=== PATIENT | male | born 1950 | race Caucasian/White ===

== ENCOUNTER → 2016-12-08 | Outpatient (CLI) | payer MEDICARE, BC ==
[2016-12-08 09:16] LABS: Blood Urea Nitrogen 22 mg/dL (9-20); Non-African American GFR(MDRD) >60 (>60 ml/min/1.73 sqM)
--- NOTE | 2016-12-08 10:39 | CT ---
EXAMINATION TYPE: CT chest w con DATE OF EXAM: 12/08/2016 9:53 AM COMPARISON: 11/26/2015 HISTORY: Solitary Lung Nodules CT DLP: 629.00 mGycm, Automated exposure control for dose reduction was used. CONTRAST: Performed injected with 100 ml mL of Omnipaque 300. TECHNIQUE: Axial images were obtained at 5 mm thick sections. Reconstructed images are reviewed on [employer] computer in the coronal plane. FINDINGS: Portion of the thyroid visualized is normal. There may be some mild thickening along the pleural margin of the right superior lateral lung apex pr esent previously. There is a 0.5 cm nodule in the periphery of the right middle lobe. Series 4 image 26. There is a 0.7 cm nodule posterior lateral superior segment right lower lobe. Series 4 image 30 0 .6 cm nodules in the right lower lobe. Series 4 image 33 calcification may be in the anterior right d iaphragm. There is a 0.6 cm nodule in the periphery of lower lateral left lower lobe. These are stabl e from 2014 and 2015. No enlarged mediastinal or hilar adenopathy is evident. Scattered small lymph nodes are pretracheal space The ascending aorta diameter at the level of the main pulmonary artery is 4.2 cm. The main pu lmonary artery diameter at the bifurcation is 2.6 cm. Coronary artery calcification is noted. Limited CT sections are obtained through the upper abdomen. Abdomen is essentially unremarkable. IMPRESSIONS: 1. Scattered small bilateral lung nodules. These are stable from 2015 and 2014 comparison. Findings a re likely benign.
== END | disposition home or self-care (01) ==
LOC: RADCTMAIN 08:22
PROVIDERS: ATTEND Internal Medicine
DX: R91.8 Other nonspecific abnormal finding of lung field (principal)
CPT/HCPCS: 82565; 84520; 71260; 36415; Q9967

== ENCOUNTER → 2018-07-01 | Outpatient (CLI) | payer MEDICARE, BC ==
--- NOTE | 2018-07-01 15:48 | PN ---
PROGRESS NOTE DATE OF SERVICE: 07/01/2018 This patient is a 67-year-old gentleman who has been followed in the sleep center for treatment of obstructive sleep apnea-hypopnea syndrome. The last time I saw the patient was 2 years ago. He continues to use his CPAP equipment every night for the whole night without problems related to the machine, mask fitting or humidification. I checked his CPAP unit. Usage is 100% of the time, 30/30 nights for more than 4 hours. Average usage is 8 hours per night. No leak from the mask at all. Apnea-hypopnea index is only 0.4, which is absolutely perfect. [place] Sleepiness Scale today is 4. MEDICATIONS: 1. Benicar. 2. Glyburide. 3. Vytorin. 4. Tamsulosin. 5. Aspirin. 6. Centrum Silver. PHYSICAL EXAMINATION: GENERAL: A pleasant patient in no distress. VITAL SIGNS: BP 116/62, HR 80, RR 16, height 6 feet 1-1/2 inches, weight 309.8 pounds, which is 4 pounds more than during previous visit. Body mass index 40.2, temperature 97.8, oxygen saturation at room air 93%. HEENT: PERRLA, EOMI. Evaluation of oropharynx showed tongue protrudes midline. Extremely low position of soft palate. NECK: Supple. No JVD. Thyroid is not palpable. LUNGS: Clear to percussion and to auscultation. Good air exchange. No wheezing or rhonchi. HEART: S1, S2 regular. No murmurs, gallops or rubs. ABDOMEN: Obese. EXTREMITIES: No clubbing or cyanosis. DOUGH MIXER: Awake, alert, and oriented X3. Cranial nerves 2 to 7 intact. There is no fasciculation or atrophy. noted. No focal deficits observed. IMPRESSION: 1. Obstructive sleep apnea-hypopnea syndrome. Patient demonstrated 100% compliance with treatment, benefitting from treatment. Normal respiration on CPAP. 2. Obesity. 3. Hypertension. 4. Diabetes mellitus. 5. Hyperlipidemia. 6. Status post tonsillectomy. 7. Status post hernia repair. PLAN: 1. Patient will continue to use CPAP equipment every night for the whole night. 2. Prescription for all necessary CPAP supplies, including nasal mask, tube, filters. 3. Losing weight. 4. Sleep hygiene with regular time in bed for at least 8 hours. 5. No driving if feeling any sleepiness. 6. We will consider replacing CPAP unit if necessary; possibly CPAP unit is more than 5 years old. Thank you very much for allowing me to participate in the management of your patient. Sincerely, Ryan Rader MD, PhD, FAASM Diplomat of [place] [employer] [place] [employer] Air Pollution Compliance Inspector of [facility] [place] MMODL / IJN: [id number] /
== END | disposition home or self-care (01) ==
LOC: SLEEP 13:07
PROVIDERS: ATTEND Internal Medicine
DX: G47.33 Obstructive sleep apnea (adult) (pediatric) (principal); E66.9 Obesity, unspecified; E11.9 Type 2 diabetes mellitus without complications; I10 Essential (primary) hypertension; E78.5 Hyperlipidemia, unspecified; Z90.89 Acquired absence of other organs; Z79.899 Other long term (current) drug therapy; Z98.890 Other specified postprocedural states; Z79.82 Long term (current) use of aspirin; Z99.89 Dependence on other enabling machines and devices; Z79.84 Long term (current) use of oral hypoglycemic drugs; Z68.41 Body mass index [BMI] 40.0-44.9, adult

== ENCOUNTER 2021-01-02 08:07 | Day surgery (SDC) | payer MEDICARE, BC ==
[2021-01-01 08:35] VITALS: BMI 35.3
[~2021-01-02 08:07] MED LIST: LACTATED RINGERS 1,000 ML IV SCH
--- NOTE | 2021-01-02 08:36 | P.GSHP ---
History of Present Illness H&P Date: 01/02/21 CHIEF COMPLAINT: GERD and colon screen HISTORY OF PRESENT ILLNESS: The patient is a 70-year-old male who presents with gastroesophageal reflux disease and need for colon screen. Upper and lower endoscopy were offered for further evaluation and management. PAST MEDICAL HISTORY: Please see list. PAST SURGICAL HISTORY: Please see list. MEDICATIONS: Please see list. ALLERGIES: Please see list. SOCIAL HISTORY: No illicit drug use FAMILY HISTORY: No reports of Crohn disease or ulcerative colitis. REVIEW OF ORGAN SYSTEMS: CONSTITUTIONAL: No reports of fevers or chills. GI: Denies any blood in stools or constipation. PHYSICAL EXAM: VITAL SIGNS: Stable GENERAL: Well-developed pleasant in no acute distress. HEENT: No scleral icterus. Extraocular movements grossly intact. Moist buccal mucosa. NECK: Supple without lymphadenopathy. CHEST: Unlabored respirations. Equal bilateral excursions. CARDIOVASCULAR: Regular rate and rhythm. Distal 2+ pulses. ABDOMEN: Soft, nondistended. MUSCULOSKELETAL: No clubbing, cyanosis, or edema. ASSESSMENT: 1. Gastroesophageal reflux disease 2. Colon screen. PLAN: 1. Recommend proceeding with an upper and lower endoscopy Past Medical History Past Medical History: Cancer, Diabetes Mellitus, Hyperlipidemia, Hypertension, Prostate Disorder, Skin Disorder, Sleep Apnea/CPAP/BIPAP Additional Past Medical History / Comment(s): melanoma, diverticulitis, stasis dermatitis History of Any Multi-Drug Resistant Organisms: None Reported Past Surgical History: Cholecystectomy, Hernia Repair, Orthopedic Surgery, Tonsillectomy Additional Past Surgical History / Comment(s): rt shoulder rotator cuff repair, melonoma removal right shoulder, rt inguinal hernia Past Anesthesia/Blood Transfusion Reactions: Previous Problems w/ Anesthesia Additional Past Anesthesia/Blood Transfusion Reaction / Comment(s): bp dropped during shoulder rotator cuff sx, "small veins" diff IV starts Smoking Status: Former smoker - Past Family History Sister(s) Family Medical History: Cancer Father Family Medical History: Hypertension Additional Family Medical History / Comment(s): gallbladder disease Mother Family Medical History: Hypertension Additional Family Medical History / Comment(s): gallbladder disease Medications and Allergies Home Medications Medication Instructions Recorded Confirmed Type Ezetimibe/Simvastatin [Vytorin 1 each PO HS 11/10/14 01/01/21 History 10-20 mg Tablet] Multivit-Min/FA/Lycopene/Lut 1 each PO DAILY 11/10/14 01/01/21 History [Centrum Silver Tablet] glyBURIDE/METFORMIN HCL 1 each PO BID 11/10/14 01/01/21 History [Glucovance 5-500 mg Tablet] Multivitamins, Thera [Multivitamin] 1 tab PO DAILY 03/29/15 01/01/21 History Aspirin [Adult Low Dose Aspirin EC] 81 mg PO DAILY 01/01/21 01/01/21 History Enalapril [Vasotec] 10 mg PO DAILY 01/01/21 01/01/21 History Furosemide [Lasix] 20 mg PO QAM 01/01/21 01/01/21 History Tamsulosin [Flomax] 0.4 mg PO 1600 01/01/21 01/01/21 History Triamcinolone 0.1% Cream [Kenalog 1 applicatio TOPICAL DAILY PRN 01/01/21 0 01/01/21 History 0.1% Cream] Allergies Allergy/AdvReac Type Severity Reaction Status Date / Time phentermine [From Adipex-P] Allergy Rash/Hives Verified 01/02/21 08:36
[2021-01-02 08:40] VITALS: RESP 16; TEMP 97.2
[2021-01-02] MEDS ORDERED: LIDOCAINE 1% (10MG/ML) FOR IV START INTRADERMA ONE (08:47)
[2021-01-02 08:54] LABS: Glucose,Whole Blood 114 mg/dL (75-99)
[2021-01-02] MEDS ORDERED: PROPOFOL 10 MG/ML 20 ML VIAL IV ONE (09:06)
[2021-01-02] MEDS ORDERED: KETAMINE 10 MG/ML 20 ML VIAL ONE (09:06)
[2021-01-02] MEDS ORDERED: MIDAZOLAM 2 MG/2 ML VIAL ONE (09:06)
[2021-01-02] MEDS ORDERED: LIDOCAINE 1% INJ 10MG/ML (20 ML MDV) ONE (09:06)
--- NOTE | 2021-01-02 09:21 | P.PCN ---
Date of Procedure: 01/02/21 Description of Procedure: PREOPERATIVE DIAGNOSIS: Gastroesophageal reflux disease. Morbid obesity. POSTOPERATIVE DIAGNOSIS: Morbid obesity. Gastritis. Gastroesophageal reflux disease. Diaphragmatic hiatal hernia OPERATION: Esophagogastroduodenoscopy with biopsies along antrum. SURGEON: Ami Cuadra MD ANESTHESIA: MAC. INDICATIONS: The patient is a 70-year-old male who presents with a history of reflux disease. Benefits and risks of the procedure were described. Informed consent was obtained. DESCRIPTION: The patient was brought into the endoscopy suite and laid in the left lateral decubitus position. An Olympus gastroscope was passed along the posterior oropharynx down to the distal esophagus where the squamocolumnar junction was encountered at 40 cm from the incisors. The stomach was entered and no bile reflux was found. Additional findings are listed below. Biopsies with cold for ceps were obtained of the antrum. The first through third portion of the duodenum was examined and unremarkable. Retroflexion of the scope confirmed Hill grade 4 lower esophageal valve. The squamocolumnar junction demonstrated LA grade B erosive esophagitis. The stomach was desufflated. The patient tolerated the procedure well. FINDINGS: Squamocolumnar junction 40 cm from the incisors. Diaphragmatic hiatus at 43 cm. Hiatal hernia, 3 cm Hill grade 4 lower esophageal valve. LA grade B erosive esophagitis. No active duodenitis. Chronic gastritis with recent bleed RECOMMENDATIONS: Upper endoscopy as needed.
--- NOTE | 2021-01-02 09:48 | P.PCN ---
Date of Procedure: 01/02/21 Description of Procedure: PREOPERATIVE DIAGNOSIS: Colonoscopy screening. Personal history colon polyps POSTOPERATIVE DIAGNOSIS: Colonoscopy screening. Diverticulosis, scattered. OPERATION: Colonoscopy to the cecum, ileocecal valve and appendiceal orifice. SURGEON: Ami Cuadra MD. ANESTHESIA: MAC. INDICATIONS: The patient is a 70-year-old male who presents for colonoscopy screening. Last colonoscopy over 5 years ago. Benefits and risks were described and informed consent was obtained. DESCRIPTION OF PROCEDURE: The patient had undergone Sutab prep. The patient had been brought into the operating room and laid in the left lateral decubitus position. After adequate intravenous sedation, the rectum was examined with 2% lidocaine jelly. External hemorrhoids were encountered. The rectal tone was within normal limits. No lesions were palpated in the rectal vault. An Olympus colonoscope was advanced until the cecum, ileocecal valve and appendiceal orifice were clearly viewed. The prep was excellent. Scattered diverticulosis was encountered. No large colonic polyps were found. No evidence of focal colitis was found. Retroflexion of the scope demonstrated grade 4 internal hemorrhoids without active bleeding or inflammation. The colon was desufflated. The patient had tolerated the procedure well. Withdrawal time was over 6 minutes. FINDINGS: Aronchick preparation quality scale 1 (1-5) Internal hemorrhoids, grade 3 External prolapsed hemorrhoids, grade 3 No arteriovenous malformations. No adenomatous polyps. No focal colitis. RECOMMENDATIONS: Repeat colonoscopy 5 years, 2025 Plan - Discharge Summary New Discharge Prescriptions: Continue glyBURIDE/METFORMIN HCL [Glucovance 5-500 mg Tablet] 1 each PO BID Ezetimibe/Simvastatin [Vytorin 10-20 mg Tablet] 1 each PO HS Multivit-Min/FA/Lycopene/Lut [Centrum Silver Tablet] 1 each PO DAILY Multivitamins, Thera [Multivitamin (formulary)] 1 tab PO DAILY Triamcinolone 0.1% Cream [Kenalog 0.1% Cream] 1 applicatio TOPICAL DAILY PRN PRN Reason: Rash Furosemide [Lasix] 20 mg PO QAM Enalapril [Vasotec] 10 mg PO DAILY Tamsulosin [Flomax] 0.4 mg PO 1600 Aspirin [Adult Low Dose Aspirin EC] 81 mg PO DAILY Discharge Medication List Ezetimibe/Simvastatin [Vytorin 10-20 mg Tablet] 1 each PO HS 11/10/14 [History] Multivit-Min/FA/Lycopene/Lut [Centrum Silver Tablet] 1 each PO DAILY 11/10/14 [History] glyBURIDE/METFORMIN HCL [Glucovance 5-500 mg Tablet] 1 each PO BID 11/10/14 [History] Multivitamins, Thera [Multivitamin (formulary)] 1 tab PO DAILY 03/29/15 [History] Aspirin [Adult Low Dose Aspirin EC] 81 mg PO DAILY 01/01/21 [History] Enalapril [Vasotec] 10 mg PO DAILY 01/01/21 [History] Furosemide [Lasix] 20 mg PO QAM 01/01/21 [History] Tamsulosin [Flomax] 0.4 mg PO 1600 01/01/21 [History] Triamcinolone 0.1% Cream [Kenalog 0.1% Cream] 1 applicatio TOPICAL DAILY PRN 01/01/21 [History] Follow up Appointment(s)/Referral(s): Ami Cuadra MD [STAFF PHYSICIAN] - 01/15/21 3:15 pm Patient Instructions/Handouts: *Surgery [facility] - (Anesthesia) Endoscopy Discharge Instructions, Hiatal Hernia (ED), Diverticulosis (ED), Diet for Stomach Ulcers and Gastritis (GEN), Diverticulosis Diet (GEN) Activity/Diet/Wound Care/Special Instructions: Repeat colonoscopy 5 years, 2025 Discharge Disposition: HOME SELF-CARE
[2021-01-02 09:56] VITALS: BP 107/70; PULSE 58
== END 2021-01-02 10:11 | disposition home or self-care (01) ==
LOC: ORWHC2ENDO 08:07
PROVIDERS: ATTEND Surgery Plastic and Reconstructive Surgery
DX: Z12.11 Encounter for screening for malignant neoplasm of colon (principal); K29.50 Unspecified chronic gastritis without bleeding; K22.10 Ulcer of esophagus without bleeding; K44.9 Diaphragmatic hernia without obstruction or gangrene; K57.90 Diverticulosis of intestine, part unspecified, without perforation or abscess without bleeding; K64.2 Third degree hemorrhoids; Z86.010 Personal history of colon polyps; E66.01 Morbid (severe) obesity due to excess calories; Z68.35 Body mass index [BMI] 35.0-35.9, adult; E11.9 Type 2 diabetes mellitus without complications; E78.5 Hyperlipidemia, unspecified; I10 Essential (primary) hypertension; N42.9 Disorder of prostate, unspecified; G47.30 Sleep apnea, unspecified; M19.90 Unspecified osteoarthritis, unspecified site; Z85.820 Personal history of malignant melanoma of skin; Z87.19 Personal history of other diseases of the digestive system; Z90.49 Acquired absence of other specified parts of digestive tract; Z90.89 Acquired absence of other organs; Z98.890 Other specified postprocedural states; Z87.891 Personal history of nicotine dependence; Z80.9 Family history of malignant neoplasm, unspecified; Z82.49 Family history of ischemic heart disease and other diseases of the circulatory system; Z83.79 Family history of other diseases of the digestive system; Z79.84 Long term (current) use of oral hypoglycemic drugs; Z79.82 Long term (current) use of aspirin; Z79.899 Other long term (current) drug therapy; Z88.8 Allergy status to other drugs, medicaments and biological substances
CPT/HCPCS: 88305; 43239; J2250; J2001; J2704; G0105

== ENCOUNTER → 2021-05-09 | Outpatient (CLI) | payer MEDICARE, BC ==
--- NOTE | 2021-05-10 10:30 | SFUN ---
SLEEP CENTER FOLLOW UP NOTE DATE OF SERVICE: 05/09/2021 This 70-year-old gentleman has been followed in Sleep Center for treatment of obstructive sleep apnea-hypopnea syndrome. I did not see the patient since June 2018. The patient continues to use his CPAP equipment, but CPAP equipment is old, and patient was told by [employer] [facility] that they do not have any supplies available for his machine. [place] Sleepiness Scale today is 1. I checked his CPAP unit. Usage is 30/30 nights for more than 4 hours, average 8 hours 18 minutes. Leak is 1%, which is normal. Apnea-hypopnea index is only , which is perfect. CPAP pressure is 13 cm of water. MEDICATIONS: 1. Enalapril 20 mg once a day. 2. Furosemide 20 mg once a day. 3. Glyburide-metformin 5/500 mg twice a day. 4. Aspirin 81 mg once a day. 5. Flomax 0.4 mg once a day. PHYSICAL EXAMINATION: GENERAL: Pleasant patient in no distress. VITAL SIGNS: BP 118/74, HR 63, RR 15, height 6 feet 1-1/2 inches, weight 294 pounds, body mass index , temperature 97.3, oxygen saturation at room air 93%. HEENT: PERRLA, EOMI, evaluation of oropharynx showed tongue protrudes midline. Extremely low position of soft palate. NECK: Supple, no JVD. Thyroid is not palpable. LUNGS: Clear to percussion and to auscultation. Good air exchange. No wheezing or rhonchi. HEART: S1, S2 regular. No murmurs, gallops, or rubs. ABDOMEN: Soft and nontender. Bowel sounds are present. No organomegaly appreciated. EXTREMITIES: No clubbing or cyanosis. CLINICAL RN LIAISON: Awake, alert, and oriented X3. Cranial nerves 2 to 7 intact. There is no fasciculation or atrophy. noted. No focal deficits observed. IMPRESSION: 1. Obstructive sleep apnea-hypopnea syndrome. Patient demonstrated 100% compliance with treatment, benefitting from treatment. CPAP unit is old; no supplies available for his CPAP unit, according to [employer] [facility]. 2. Obesity. 3. Hypertension. 4. Diabetes mellitus. 5. Hyperlipidemia. 6. Status post tonsillectomy. 7. Status post hernia repair. PLAN: 1. Prescription for new CPAP unit, automatic regimen with maximal pressure of 15. 2. Patient will continue to use PAP equipment every night for the whole night. 3. Sleep hygiene with regular time in bed for at least 7-1/2 to 8 hours. 4. Precautions related to driving. No driving if feeling sleepiness. 5. I will maintain all necessary prescription for PAP supplies including mask, tube, filters. 6. Watching weight. 7. Follow-up visit in 30 to 90 days after patient gets his new CPAP unit. Thank you very much for allowing me to participate in the management of your patient. Sincerely, Ryan Rader MD, PhD, FAASM Diplomat of [place] [employer] Sleep Medicine Board of [place] [employer] Glass Carrier of [facility] [place] MMCOLINL / PATYN: [id number] /
== END | disposition home or self-care (01) ==
LOC: SLEEP 16:00
PROVIDERS: ATTEND Internal Medicine
DX: G47.33 Obstructive sleep apnea (adult) (pediatric) (principal); E66.9 Obesity, unspecified; I10 Essential (primary) hypertension; E11.9 Type 2 diabetes mellitus without complications; E78.5 Hyperlipidemia, unspecified; Z90.89 Acquired absence of other organs; Z48.815 Encounter for surgical aftercare following surgery on the digestive system

== ENCOUNTER → 2021-08-01 | Outpatient (CLI) | payer MEDICARE, BC ==
--- NOTE | 2021-08-01 22:13 | SFUN ---
SLEEP CENTER FOLLOW UP NOTE DATE OF SERVICE: 08/01/2021 70-year-old gentleman has been followed in Sleep Center for treatment of obstructive sleep apnea-hypopnea syndrome. Recently patient's CPAP unit has been replaced and today is his first visit with a new CPAP machine. He likes his CPAP unit, using it every night. It works for him better than the previous CPAP unit. He did not receive his nasal mask which he did receive before. [place] Sleepiness Scale is 3, which is normal. I checked CPAP unit. Range of the pressure 10-15. Patient using it 30/30 nights. Average usage 7.9 hours per night which is great compliance. Leak is 25 L/minutes which is borderline. Apnea-hypopnea index only 0.8 which is perfect. MEDICATIONS: Enalapril 20 mg once a day, furosemide 20 mg once a day, aspirin 81 mg once a day. Glyberide metformin 5/500 mg twice a day. Flomax 0.4 mg once a day. PHYSICAL EXAMINATION: GENERAL: Patient in no distress. BP 131/68, HR 70, RR 18, weight 299.6, temperature 97.3, oxygen saturation at room air 92%. [place] Sleepiness Scale is 3. Oropharynx: Extremely low position of soft palate, Mallampati 4. NECK: Supple, no JVD. Thyroid is not palpable. LUNGS: Clear to percussion and to auscultation. Good air exchange. No wheezing or rhonchi. HEART: S1, S2 regular. No murmurs, gallops, or rubs. ABDOMEN: Slightly obese. Soft and nontender. Bowel sounds are present. No organomegaly appreciated. EXTREMITIES: No clubbing or cyanosis. PLUMBING MANAGER: Awake, alert, and oriented X3. Cranial nerves 2 to 7 intact. There is no fasciculation or atrophy. noted. No focal deficits observed. IMPRESSION: 1. Obstructive sleep apnea-hypopnea syndrome. Patient demonstrated 100% compliance with treatment. Normal respiration on new CPAP unit. 2. Patient does not like the nasal mask which he received. 3. Obesity. 4. Hypertension. 5. Diabetes mellitus. 6. Hyperlipidemia. 7. Status post tonsillectomy. 8. Status post hernia repair. PLAN: 1. Prescription to replace nasal mask to the style which patient used before. 2. Patient will continue to use PAP equipment every night for the whole night. 3. Sleep hygiene with regular time in bed for at least 7-1/2 to 8 hours. 4. Precautions related to driving. No driving if feeling sleepiness. 5. I will maintain all necessary prescription for PAP supplies including mask, tube, filters. 6. Watching weight. 7. Follow-up visit in 6 months or earlier if patient has any problems. Thank you very much for allowing me to participate in the management of your patient. Sincerely, Ryan Rader MD, PhD, FAASM Diplomat of [place] [employer] Sleep Medicine Board of [place] [employer] Crate Maker of [facility] [place] MMODL / IJN: [id number] /
== END | disposition home or self-care (01) ==
LOC: SLEEP 11:08
PROVIDERS: ATTEND Internal Medicine
DX: G47.33 Obstructive sleep apnea (adult) (pediatric) (principal); E66.9 Obesity, unspecified; I10 Essential (primary) hypertension; E78.5 Hyperlipidemia, unspecified; E11.9 Type 2 diabetes mellitus without complications; Z90.49 Acquired absence of other specified parts of digestive tract; Z98.890 Other specified postprocedural states

== ENCOUNTER → 2022-01-30 | Outpatient (CLI) | payer MEDICARE, BC ==
--- NOTE | 2022-01-30 11:56 | P.PN ---
Subjective DATE: 01/30/2022 FOLLOW UP VISIT. Patient with obstructive sleep apnea hypopnea syndrome return to sleep center for follow-up visit. Information from previous visit have been reviewed. Patient is using PAP equipment every night for the whole night, getting PAP supplies in time. The patient does not have significant problems with the mask, PAP unit and humidification. [place] sleepiness scale is 2. I checked PAP unit. PAP unit pressure 1015, average 14.6 cm H2O. Usage is 100 % for more then 4 hours, average 7.9 hours per night. Leak is 5 l/m, which is in acceptable range. Apnea Hypopnea Index is 0.6, which is normal. MEDICATIONS:1. enalapril 20 mg once a day 2. Glyburidemetformin 5 mg500 mg twice a day 3. Lasix 20 mg once a day 4. Flomax 0.4 mg once a day 5. Vytorin once a day 6. Fluticasone 7. Aspirin 81 mg once a day During physical exam: GENERAL: A pleasant patient without any distress. VITAL SIGNS: BP 119/74, HR 62, RR 16, weight 290, temperature 97.3, oxygen saturation at room air 95 % . HEENT: PERRLA, EOMI.low position of soft palate, Mallapati for. NECK: Supple. No JVD. LUNGS: Clear to percussion and to auscultation. Good air exchange. No wheezing or rhonchi. HEART: S1, S2 regular. ABDOMEN: Soft and nontender. Obese EXTREMITIES: No clubbing or cyanosis. LITHOGRAPHIC PROOFER APPRENTICE: Awake, alert, and oriented x3. No focal deficit. Impressions: 1. Obstructive sleep apnea-hypopnea syndrome. Patient demonstrated great compliance with treatment, benefiting from treatment. 2. Obesity. 3. Hypertension. 4. Diabetes mellitus. 5. Hyperlipidemia. 6. Status post tonsillectomy. 7. Status post hernia repair. Plan: 1. Continue using PAP equipment every night for the whole night. 2. To change air filter at least 1-2 times per month. 3. PAP unit should stay lower then position of the head. 4. Advised patient to remove all remaining water from humidifier canister daily and make it dry after each usage. Refill canister with fresh distilled water before each usage. 5. Sleep hygiene with regular time in bed for at least 8 hours. 6. Precautions related to driving. No driving if feel any sleepiness. 7. I will maintain prescription for PAP supplies including mask, tube, filters. 8. Follow up visit in 6 months or earlier if patient has any problems. 9. Watching weight. Thank you very much for allowing me to participate in the management of your patient. Ryan Rader MD, PhD, FAASM. Diplomat of [place] [employer], Sleep Medicine Board by [place] [employer] Tariff Expert of [facility] [place]
== END ==
LOC: SLEEP 10:49
PROVIDERS: ATTEND Internal Medicine
DX: G47.33 Obstructive sleep apnea (adult) (pediatric) (principal); E66.9 Obesity, unspecified; I10 Essential (primary) hypertension; E11.9 Type 2 diabetes mellitus without complications; E78.5 Hyperlipidemia, unspecified; Z90.09 Acquired absence of other part of head and neck; Z98.890 Other specified postprocedural states; Z99.89 Dependence on other enabling machines and devices; Z88.8 Allergy status to other drugs, medicaments and biological substances

== ENCOUNTER → 2022-07-31 | Outpatient (CLI) | payer MEDICARE, BC ==
--- NOTE | 2022-07-31 12:41 | P.PN ---
Subjective DATE: [] FOLLOW UP VISIT. Patient with obstructive sleep apnea hypopnea syndrome return to sleep center for follow-up visit. Information from previous visit have been reviewed. This is first visit after patient received new CPAP unit. Patient is using PAP equipment every night for the whole night, getting PAP supplies in time. The patient does not have significant problems with the mask, PAP unit and humidification. [place] sleepiness scale is 2, which is perfect. I checked information from PAP unit. PAP unit pressure 10-15, average 14.9 cm H2O. Usage is 98 % for more then 4 hours, average 7.5 hours per night. Leak is perfect 0 l/m. Apnea Hypopnea Index is 1.0, which is normal. MEDICATIONS:1. Enalapril 20 mg once a day 2. Flomax 0.4 mg once a day 3. Glyburide/metformin 5/500 mg twice a day 4. Vytorin 5. Simvastatin 6. Lasix 20 mg once a day During physical exam: GENERAL: A pleasant patient without any distress. VITAL SIGNS: BP 131/83, HR 65, RR 16 , weight 295.4, temperature 97.2, oxygen saturation at room air 96 % . HEENT: PERRLA, EOMI.low position of soft palate, Mallapati 4 . NECK: Supple. No JVD. LUNGS: Clear to percussion and to auscultation. Good air exchange. No wheezing or rhonchi. HEART: S1, S2 regular. ABDOMEN: Soft and nontender. Obese EXTREMITIES: No clubbing or cyanosis. SHEET METAL ROOFER: Awake, alert, and oriented x3. No focal deficit. Impressions: 1. Obstructive sleep apnea-hypopnea syndrome. Patient demonstrated great compliance with treatment, benefiting from treatment. 2. Hypertension. 3. Diabetes mellitus. 4. Obesity. 5. Hyperlipidemia. 6. Status post tonsillectomy. 7. Status post hernia repair. 8. []. 9. []. 10. []. 11.[]. 12.[]. Plan: 1. Continue using PAP equipment every night for the whole night. 2. To change air filter at least 1-2 times per month. 3. PAP unit should stay lower then position of the head. 4. Advised patient to remove all remaining water from humidifier canister daily and make it dry after each usage. Refill canister with fresh distilled water before each usage. 5. Sleep hygiene with regular time in bed for at least 8 hours. 6. Precautions related to driving. No driving if feel any sleepiness. 7. I will maintain prescription for PAP supplies including mask, tube, filters. 8. Watching and losing weight. 9. Follow up visit in 6 months or earlier if patient has any problems. Thank you very much for allowing me to participate in the management of your patient. Ryan Rader MD, PhD, FAASM. Diplomat of [place] [employer], Sleep Medicine Board by [place] [employer] Smart Grid Engineer of [facility] [place]
== END ==
LOC: SLEEP 11:27
PROVIDERS: ATTEND Internal Medicine
DX: G47.33 Obstructive sleep apnea (adult) (pediatric) (principal); I10 Essential (primary) hypertension; E11.9 Type 2 diabetes mellitus without complications; E66.9 Obesity, unspecified; E78.5 Hyperlipidemia, unspecified; Z79.84 Long term (current) use of oral hypoglycemic drugs; Z79.899 Other long term (current) drug therapy; Z98.890 Other specified postprocedural states; Z87.891 Personal history of nicotine dependence; Z88.8 Allergy status to other drugs, medicaments and biological substances; Z99.89 Dependence on other enabling machines and devices
CPT/HCPCS: 99212

== ENCOUNTER → 2023-01-28 | Outpatient (CLI) | payer MEDICARE, BC ==
--- NOTE | 2023-01-28 11:30 | P.PN ---
Subjective DATE: 01/28/2023 FOLLOW UP VISIT. Patient with obstructive sleep apnea hypopnea syndrome return to sleep center for follow-up visit. Information from previous visit have been reviewed. Patient is using PAP equipment every night for the whole night, getting PAP supplies in time. The patient does not have significant problems with the mask, PAP unit and humidification. [place] sleepiness scale is 3, which is normal. I checked information from PAP unit. PAP unit pressure 10-15, average 14.9 cm H2O. Usage is 100 % for more then 4 hours, average 8.3 hours per night. Leak is 0.5 l/m, which is in acceptable range. Apnea Hypopnea Index is 0.3, which is normal. MEDICATIONS:1. Enalapril 20 mg once a day 2. Flomax 3. Lasix 20 mg once a day 4. Glyburide/metformin 5/500 twice a day During physical exam: GENERAL: A pleasant patient without any distress. VITAL SIGNS: BP 129/70, HR 73, RR 16 , weight 294.2, temperature 96.2, oxygen saturation at room air 95 % . HEENT: PERRLA, EOMI.low position of soft palate, Mallapati 4 . NECK: Supple. No JVD. LUNGS: Clear to percussion and to auscultation. Good air exchange. No wheezing or rhonchi. HEART: S1, S2 regular. ABDOMEN: Soft and nontender. Obese EXTREMITIES: No clubbing or cyanosis. ASSOCIATE DOCTOR: Awake, alert, and oriented x3. No focal deficit. Impressions: 1. Obstructive sleep apnea-hypopnea syndrome. Patient demonstrated great compliance with treatment, benefiting from treatment. 2. Obesity, BMI 38.7. 3. Hypertension. 4. Diabetes mellitus. 5. Hyperlipidemia. 6. Status post tonsillectomy. 7. Status post hernia repair. Plan: 1. Continue using PAP equipment every night for the whole night. 2. To change air filter at least 1-2 times per month. 3. PAP unit should stay lower then position of the head. 4. Advised patient to remove all remaining water from humidifier canister daily and make it dry after each usage. Refill canister with fresh distilled water before each usage. 5. Sleep hygiene with regular time in bed for at least 8 hours. 6. Precautions related to driving. No driving if feel any sleepiness. 7. I will maintain prescription for PAP supplies including mask, tube, filters. 8. Follow up visit in 6 months or earlier if patient has any problems. 9. Watching and losing weight. Thank you very much for allowing me to participate in the management of your patient. Ryan Rader MD, PhD, FAASM. Diplomat of [place] Board of Sleep Medicine, Sleep Medicine Board by [place] Board of Internal Medicine Senior Electronics Technician of [facility] [place]
== END ==
LOC: 3 N SLEEP 11:03
PROVIDERS: ATTEND Internal Medicine
DX: G47.33 Obstructive sleep apnea (adult) (pediatric) (principal); E66.9 Obesity, unspecified; Z68.38 Body mass index [BMI] 38.0-38.9, adult; I10 Essential (primary) hypertension; E11.9 Type 2 diabetes mellitus without complications; E78.5 Hyperlipidemia, unspecified; Z79.84 Long term (current) use of oral hypoglycemic drugs; Z98.890 Other specified postprocedural states; Z99.89 Dependence on other enabling machines and devices; Z79.899 Other long term (current) drug therapy; Z88.8 Allergy status to other drugs, medicaments and biological substances; Z87.891 Personal history of nicotine dependence
CPT/HCPCS: 99212

== ENCOUNTER → 2023-08-06 | Outpatient (CLI) | payer MEDICARE, BC ==
--- NOTE | 2023-08-06 10:54 | P.PN ---
Subjective DATE: 06/06/2024 FOLLOW UP VISIT. Patient with obstructive sleep apnea hypopnea syndrome return to sleep center for follow-up visit. Information from previous visit have been reviewed. Patient is using PAP equipment every night for the whole night, getting PAP supplies in time. The patient does not have significant problems with the mask, PAP unit and humidification. [place] sleepiness scale is, which is perfect. I checked information from PAP unit. PAP unit pressure 10-15, average 15 cm H2O. Usage is 100 % for more then 4 hours, average 8.2 hours per night. Leak is normal 0.3 l/m. Apnea Hypopnea Index is 0.4, which is normal. MEDICATIONS:1. And enalapril 20 mg once a day 2. Glyburide/metformin 5/500 mg twice a day 3. Lasix 20 mg once a day 4. Flomax 0.4 mg once a day 5. As achy my per 6. Centrum Silver 7. Aspirin 81 mg once a day 8. Fluticasone During physical exam: GENERAL: A pleasant patient without any distress. VITAL SIGNS: BP 132/79, HR 66, RR 16 , weight 304.2, temperature 98.2, oxygen saturation at room air 95 % . HEENT: PERRLA, EOMI.low position of soft palate, Mallapati 4 . NECK: Supple. No JVD. LUNGS: Clear to percussion and to auscultation. Good air exchange. No wheezing or rhonchi. HEART: S1, S2 regular. ABDOMEN: Soft and nontender. Obese EXTREMITIES: No clubbing or cyanosis. ACCOUNTS RECEIVABLE ASSOCIATE: Awake, alert, and oriented x3. No focal deficit. Impressions: 1. Obstructive sleep apnea-hypopnea syndrome. Patient demonstrated great compliance with treatment, benefiting from treatment. 2. Obesity, patient increased his weight on 10 pounds comparing to the previous visit, body mass index 38.6. 3. Hypertension. 4. Diabetes mellitus. 5. Hyperlipidemia. 6. Status post hernia repair. 7. Status post tonsillectomy. Plan: 1. Continue using PAP equipment every night for the whole night. 2. To change air filter at least 1-2 times per month. 3. PAP unit should stay lower then position of the head. 4. Advised patient to remove all remaining water from humidifier canister daily and make it dry after each usage. Refill canister with fresh distilled water before each usage. 5. Sleep hygiene with regular time in bed for at least 8 hours. 6. Precautions related to driving. No driving if feel any sleepiness. 7. I will maintain prescription for PAP supplies including mask, tube, filters. 8. Watching and losing weight. 9. Follow up visit in 6 months or earlier if patient has any problems. Thank you very much for allowing me to participate in the management of your patient. Ryan Rader MD, PhD, FAASM. Diplomat of [place] [employer] Medicine, Sleep Medicine Board by [place] [employer] Propagation Worker of [facility] [place]
== END ==
LOC: 3 N SLEEP 10:09
PROVIDERS: ATTEND Internal Medicine
DX: G47.33 Obstructive sleep apnea (adult) (pediatric) (principal); E66.9 Obesity, unspecified; I10 Essential (primary) hypertension; E11.9 Type 2 diabetes mellitus without complications; E78.5 Hyperlipidemia, unspecified; Z98.890 Other specified postprocedural states; Z99.89 Dependence on other enabling machines and devices; Z88.5 Allergy status to narcotic agent; Z79.82 Long term (current) use of aspirin; Z87.891 Personal history of nicotine dependence
CPT/HCPCS: 99212

== ENCOUNTER → 2024-03-24 | Outpatient (CLI) | payer MEDICARE, BC ==
[2024-03-24 10:53] VITALS: BP 125/78; PULSE 66; RESP 16; TEMP 98
--- NOTE | 2024-03-24 11:13 | P.PROGSL ---
Subjective DATE: 03/24/2024 FOLLOW UP VISIT. Patient with obstructive sleep apnea hypopnea syndrome return to sleep center for follow-up visit. Information from previous visit have been reviewed. Patient is using PAP equipment every night for the whole night, getting PAP supplies in time. The patient does not have significant problems with the mask, PAP unit and humidification. [place] sleepiness scale is 4, which is normal. I checked information from PAP unit. PAP unit pressure 10-15, average 15 cm H2O. Usage is 100% for more then 4 hours, average 8.4 hours per night. Leak is perfect 2 l/m. Apnea Hypopnea Index is postop perfect 0.1. MEDICATIONS have been reviewed, please see below. During physical exam: GENERAL: A pleasant patient without any distress. VITAL SIGNS: Please see below, weight is 303.8 lbs. HEENT: PERRLA, EOMI.low position of soft palate, Mallapati 4 . NECK: Supple. No JVD. LUNGS: Clear to percussion and to auscultation. Good air exchange. No wheezing or rhonchi. HEART: S1, S2 regular. ABDOMEN: Soft and nontender. Obese EXTREMITIES: No clubbing or cyanosis. CAT SWAMPER: Awake, alert, and oriented x3. No focal deficit. Impressions: 1. Obstructive sleep apnea-hypopnea syndrome. Patient demonstrated great compliance with treatment, benefiting from treatment. 2. Obesity, BMI 39.5. 3. Hypertension. 4. Diabetes mellitus. 5. Hyperlipidemia. 6. Status post tonsillectomy. 7. Status post hernia repair. Plan: 1. Continue using PAP equipment every night for the whole night. 2. Sleep hygiene with regular time in bed for at least 7.5-8 hours 3. PAP unit should stay lower then position of the head. 4. Advised patient to remove all remaining water from humidifier canister daily and make it dry after each usage. Refill canister with fresh distilled water before each usage. 5. Watching and losing weight. 6. Precautions related to driving. No driving if feel any sleepiness. 7. I will maintain prescription for PAP supplies including mask, tube, filters. 8. Follow up visit in 6 months or earlier if patient has any problems. Thank you very much for allowing me to participate in the management of your patient. Ryan Rader MD, PhD, FAASM. Diplomat of [place] Board of Sleep Medicine, Sleep Medicine Board by [place] Board of [employer] Medicine Emergency Vehicle Operator of [facility] [place] Objective - Vital Signs Vital Signs: Vital Signs Temp 98 F 03/24/24 10:52 Pulse 66 03/24/24 10:52 Resp 16 03/24/24 10:52 BP 125/78 03/24/24 10:52 Pulse Ox 93 L 03/24/24 10:52 FiO2 Intake & Output 03/23/24 03/24/24 03/24/24 18:59 06:59 18:59 Weight 137.438 kg Home Medications: Home Medications Medication Instructions Recorded Confirmed Type Ezetimibe/Simvastatin [Vytorin 1 each PO HS 11/10/14 03/24/24 History 10-20 mg Tablet] Multivit-Min/FA/Lycopene/Lut 1 each PO DAILY 11/10/14 03/24/24 History [Centrum Silver Tablet] glyBURIDE/METFORMIN HCL 1 each PO BID 11/10/14 03/24/24 History [Glucovance 5-500 mg Tablet] Multivitamins, Thera [Multivitamin 1 tab PO DAILY 03/29/15 03/24/24 History (formulary)] Aspirin [Adult Low Dose Aspirin EC] 81 mg PO DAILY 01/01/21 03/24/24 History Enalapril [Vasotec] 10 mg PO DAILY 01/01/21 03/24/24 History Furosemide [Lasix] 20 mg PO QAM 01/01/21 03/24/24 History Tamsulosin [Flomax] 0.4 mg PO 1600 01/01/21 03/24/24 History Triamcinolone 0.1% Cream [Kenalog 1 applicatio TOPICAL DAILY PRN 01/01/21 03/24/24 History 0.1% Cream] Fluticasone Furoate [Flonase 1 spray EA NOSTRIL 03/24/24 History Sensimist]
== END ==
LOC: 3 N SLEEP 10:19
PROVIDERS: ATTEND Internal Medicine
CPT/HCPCS: 99212

== ENCOUNTER 2024-07-27 06:18 | Day surgery (SDC) | payer MEDICARE, BC, OTHER ==
[~2024-07-27 06:18] MED LIST changes: +ATROPINE OPHTH SOLN 1% 5ML BTL OPHTHALMIC PRN; +LIDOCAINE 1% (10MG/ML) FOR IV START INTRADERMA PRN; +TETRACAINE 0.5% OPHTH (PF) DROPS 4 ML BTL OP PRN
[2024-07-27] MEDS: IV FLUID CONTINUATION 1,000 ML IV ONE (06:47)
[2024-07-27] MEDS: CYCLOPENTOLATE 1% OPHTH SOLN 2 ML BTL OP PRN (06:50)
[2024-07-27 06:52] LABS: Glucose,Whole Blood 121 mg/dL (70-110)
[2024-07-27] MEDS: PHENYLEPHRINE 2.5% OPHTH DRP 2ML OP PRN ×2 (06:55→07:02)
[2024-07-27] MEDS ORDERED: ONDANSETRON 4 MG/2 ML VIAL IVP PRN (07:00)
[2024-07-27] MEDS ORDERED: fentaNYL (PF) 50 MCG/ML 2 ML AMP IV PRN (07:00)
[2024-07-27 07:14] VITALS: TEMP 97.8
[2024-07-27] MEDS ORDERED: MIDAZOLAM 2 MG/2 ML VIAL ONE (07:24)
[2024-07-27] MEDS: EPINEPHrine (PF) 0.3 ML in BALANCED SALT IRRIG SOLN COMB2 500 ML IRRIGATION ONE (07:45)
[2024-07-27] MEDS: ATROPINE OPHTH SOLN 1% 5ML BTL RIGHT EYE ONE (07:49)
[2024-07-27] MEDS: LIDOCAINE 1% (PF) 10MG/ML VIAL SQ ONE (07:49)
[2024-07-27] MEDS: BALANCED SALT IRRIG SOLN COMB2 15 ML IRRIG.SOLN INTRAOCULA ONE (07:49)
[2024-07-27] MEDS: HYALURONATE SODIUM INTRAOCULAR 1 EACH SYRINGE (12MG/ML) INTRAOCULA ONE (07:49)
[2024-07-27] MEDS: MOXIFLOXACIN HCL 0.5% DROPS 3 ML BTL OP PRN (07:50)
[2024-07-27] MEDS: TIMOLOL 0.5% OPHTH DROPS 5 ML BTL OP PRN (07:50)
--- NOTE | 2024-07-27 08:14 | P.OP ---
Date of Procedure: 07/27/24 Preoperative Diagnosis: NS & PSC Postoperative Diagnosis: same Procedure(s) Performed: PIOL, OD Implants: [id number] +19.00 Anesthesia: MAC Surgeon: Jett Carroll Pathology: none sent Condition: stable Disposition: same day Indications for Procedure: blurry vision Operative Findings: no complications
[2024-07-27 08:19] VITALS: RESP 16
[2024-07-27 08:38] VITALS: BP 105/62; PULSE 57
--- NOTE | 2024-07-27 18:51 | OP ---
OPERATIVE REPORT DATE OF SERVICE : 07/27/2024 PROCEDURE: Phacoemulsification of cataract and intraocular lens implant of the right eye. PREOPERATIVE DIAGNOSES: Nuclear sclerosis, posterior subcapsular cataract and regular astigmatism and exposure to Flomax. POSTOPERATIVE DIAGNOSES: Nuclear sclerosis, posterior subcapsular cataract and regular astigmatism and exposure to Flomax with floppy iris encountered during the procedure. ANESTHESIA: Topical. ESTIMATED BLOOD LOSS: None. SPECIMEN TAKEN: None. NARRATIVE: After obtaining the appropriate consent, the patient was brought to the operating room where he was placed under cardiac monitoring and prepped and draped in the usual sterile manner. Using previously acquired corneal topography information, the axis of 114 degrees was identified and marked with a [employer] axis marker. A 5.5 mm Jacob ring was placed centrally over the Purkinje reflex to rickie the anterior cornea. At the 11 o'clock position, an MVR blade was used to create a paracentesis port. Through this opening, 1% Xylocaine MPF with 1:1000 epinephrine MPF and balanced salt solution in a ratio of 1:2:1 was injected into the anterior chamber. This was followed by stabilization of the anterior chamber with Amvisc. At the 9 o'clock position, a 2.75 mm caden keratome was used to create a self-sealing corneal flap incision in a Langerman's fashion. Due to the poor dilation encountered even with the additional med mix for the patient's eye, a 7 mm Malyugin ring was chosen, inserted into the anterior chamber and fixed on the pupillary sphincter. This was then followed by a cystotome to begin a continuous tear capsulorrhexis, which was then completed using the Utrata forceps. Care was taken to ensure the size of the rhexis was the size of the rickie previously placed on the patient's cornea. Hydrodissection and hydrodelineation of the lens were accomplished with balanced salt solution. Phacoemulsification of the lens utilizing phaco chop was accomplished in 22.93 seconds at 13.8% power. Additional med mix was instilled into the patient's eye and removal of the remaining cortical material was accomplished using irrigation and aspiration as well as careful polishing of the posterior capsule in the capsule vacuum mode. Additional Amvisc was then used to stabilize the capsular bag and a Chelsi capsule polishing instrument as well as a papcarmen capsule polishing instruments were used to scrub and remove as much of the cortical material for the entire 360 degrees of the equator and anterior capsular leaflet of the lens capsule itself. This was followed by enlarging the temporal incision slightly with keratome and a [employer]ausch [employer] Lomb Trulign, model [id number], 19 diopter posterior chamber intraocular lens was then inserted into the capsular bag without difficulty. A Bechert lens rotator was required in order to train the trailing haptics into the capsular bag as expected. Once the lens was placed in the capsular bag, it was rotated for 270 degrees to confirm the lack of residual cortical material providing resistance. This was followed by removal of the Malyugin ring and then removal of the viscoelastic under irrigation and aspiration, finally realigning the lens with the schrader for astigmatism correction at 114 degrees as noted earlier. The eye was then brought to normal intraocular pressure through the paracentesis ports. The temporal incision and fornices were dried with a Weck-Denisse sponge and Tisseel was then used to maintain watertight integrity of both paracentesis as well as the temporal incision. He then received 2 drops of 0.5% timolol followed by 2 drops of 0.5% moxifloxacin and 2 drops of 1% atropine. He was then lightly patched and shielded in the usual manner. There were no complications from the procedure. He tolerated the procedure well and was returned to outpatient recovery in good condition. MMODL / IJN: [id number] /
== END 2024-07-27 09:04 | disposition home or self-care (01) ==
LOC: OR 06:18
PROVIDERS: ATTEND Ophthalmology
DX: H25.11 Age-related nuclear cataract, right eye (principal); I10 Essential (primary) hypertension; E78.5 Hyperlipidemia, unspecified; G47.33 Obstructive sleep apnea (adult) (pediatric); E11.9 Type 2 diabetes mellitus without complications; M19.90 Unspecified osteoarthritis, unspecified site; C43.9 Malignant melanoma of skin, unspecified; Z99.89 Dependence on other enabling machines and devices; Z88.5 Allergy status to narcotic agent; Z79.84 Long term (current) use of oral hypoglycemic drugs; Z79.899 Other long term (current) drug therapy
CPT/HCPCS: 66984; V2787; C1780; J2250; J0171; J2003

== ENCOUNTER → 2024-10-11 | Outpatient (CLI) | payer MEDICARE, BC, OTHER ==
[2024-10-11 21:48] LABS: Alternaria alternata IgE 1.15 kU/L; Aspergillus fumagatus IgE 0.13 kU/L; Birch IgE <0.10 kU/L; Cat Epith & Dander IgE 0.85 kU/L; Cladosporian herbarum IgE <0.10 kU/L; Cockroach IgE 0.41 kU/L; Dermato. farinae IgE 0.47 kU/L; Elm IgE <0.10 kU/L; Maple (Box Elder) IgE <0.10 kU/L; Oak IgE <0.10 kU/L; Ragweed,Common IgE 0.24 kU/L; Red Top (Bentgrass) IgE <0.10 kU/L
== END | disposition home or self-care (01) ==
LOC: LABWHC1 09:57
PROVIDERS: ATTEND Otolaryngology
DX: J30.89 Other allergic rhinitis (principal)
CPT/HCPCS: 36415; 82785; 86003

== ENCOUNTER → 2024-10-19 | Outpatient (CLI) | payer MEDICARE, BC ==
[2024-10-19 10:52] VITALS: BP 151/81; PULSE 68; RESP 16; TEMP 97.5
--- NOTE | 2024-10-19 11:11 | P.PROGSL ---
Subjective DATE: 10/19/2024 FOLLOW UP VISIT. Patient with obstructive sleep apnea hypopnea syndrome return to sleep center for follow-up visit. Information from previous visit have been reviewed. Patient is using PAP equipment every night for the whole night, getting PAP supplies in time. The patient does not have significant problems with the mask, PAP unit and humidification. [place] sleepiness scale is 1, which is perfect. I checked information from PAP unit. PAP unit pressure 10-15, average 15 cm H2O. Usage is 100% for more then 4 hours, average 8 hours per night. Leak is 2 l/m, which is in acceptable range. Apnea Hypopnea Index is 0.4, which is normal. MEDICATIONS have been reviewed, please see below. During physical exam: GENERAL: A pleasant patient without any distress. VITAL SIGNS: Please see below, weight is 302 lbs. HEENT: PERRLA, EOMI.low position of soft palate, Mallapati 4 . NECK: Supple. No JVD. LUNGS: Clear to percussion and to auscultation. Good air exchange. No wheezing or rhonchi. HEART: S1, S2 regular. ABDOMEN: Soft and nontender. Obese EXTREMITIES: No clubbing or cyanosis. LIVESTOCK LABORER: Awake, alert, and oriented x3. No focal deficit. Impressions: 1. Obstructive sleep apnea-hypopnea syndrome. Patient demonstrated great compliance with treatment, benefiting from treatment. 2., BMI 39.8. 3. Hypertension. 4. Diabetes mellitus, last hemoglobin A1c according to patient 6.4. 5. Hyperlipidemia. 6. Status post hernia repair. 7. Status post tonsillectomy. Plan: 1. Continue using PAP equipment every night for the whole night. 2. Sleep hygiene with regular time in bed for at least 7.5-8 hours 3. PAP unit should stay lower then position of the head. 4. Advised patient to remove all remaining water from humidifier canister daily and make it dry after each usage. Refill canister with fresh distilled water before each usage. 5. Watching weight. 6. Precautions related to driving. No driving if feel any sleepiness. 7. I will maintain prescription for PAP supplies including mask, tube, filters. 8. Follow up visit in 8 months or earlier if patient has any problems. Thank you very much for allowing me to participate in the management of your patient. Ryan Rader MD, PhD, FAASM. Diplomat of [place] [employer] Medicine, Sleep Medicine Board by [place] [employer] Spinning Frame Changer of [facility] [place] cc: Shankar Fleming MD Objective - Vital Signs Vital Signs: Vital Signs Temp 97.5 F L 10/19/24 10:52 Pulse 68 10/19/24 10:52 Resp 16 10/19/24 10:52 BP 151/81 10/19/24 10:52 Pulse Ox 93 L 10/19/24 10:52 FiO2 Intake & Output 10/18/24 10/19/24 10/19/24 18:59 06:59 18:59 Weight 136.985 kg Home Medications: Home Medications Medication Instructions Recorded Confirmed Type Ezetimibe/Simvastatin [Vytorin 1 each PO HS 11/10/14 10/19/24 History 10-20 mg Tablet] Multivit-Min/FA/Lycopene/Lut 1 each PO DAILY 11/10/14 10/19/24 History [Centrum Silver Tablet] glyBURIDE/METFORMIN HCL 1 each PO BID 11/10/14 10/19/24 History [Glucovance 5-500 mg Tablet] Aspirin [Adult Low Dose Aspirin EC] 81 mg PO DAILY 01/01/21 10/19/24 History Enalapril [Vasotec] 20 mg PO DAILY 01/01/21 10/19/24 History Furosemide [Lasix] 20 mg PO QAM 01/01/21 10/19/24 History Tamsulosin [Flomax] 0.8 mg PO 1600 01/01/21 10/19/24 History Triamcinolone 0.1% Cream [Kenalog 1 applicatio TOPICAL DAILY PRN 01/01/21 10/19/24 History 0.1% Cream] Fluticasone Furoate [Flonase 1 spray EA NOSTRIL DAILY PRN 03/24/24 08/31/24 History Sensimist] Dulaglutide [Trulicity] 0.75 mg SQ MCCLAIN 07/25/24 10/19/24 History
== END ==
LOC: 3 N SLEEP 10:40
PROVIDERS: ATTEND Internal Medicine
DX: G47.33 Obstructive sleep apnea (adult) (pediatric) (principal); I10 Essential (primary) hypertension; E11.9 Type 2 diabetes mellitus without complications; E78.5 Hyperlipidemia, unspecified; Z48.815 Encounter for surgical aftercare following surgery on the digestive system; Z48.814 Encounter for surgical aftercare following surgery on the teeth or oral cavity; Z68.39 Body mass index [BMI] 39.0-39.9, adult; Z87.891 Personal history of nicotine dependence; Z88.8 Allergy status to other drugs, medicaments and biological substances
CPT/HCPCS: 99212